=== PATIENT | female | born 1970 | race Caucasian/White ===

== ENCOUNTER → 2023-10-05 14:08 | Outpatient (REF) | payer OTHER, SELFPAY | LOC: HWRAD 14:08 | PROVIDERS: ATTENDING PHYSICIAN Student in an Organized Health Care Education/Training Program; FAMILY PHYSICIAN Internal Medicine | DX: S72.142D Displaced intertrochanteric fracture of left femur, subsequent encounter for closed fracture with routine healing (principal) | CPT/HCPCS: 73700 ==

== ENCOUNTER 2023-11-09 03:41 | Emergency (ER) | payer OTHER, SELFPAY ==
[2023-11-09 03:45] VITALS: BP 164/98
[2023-11-09 06:34] VITALS: BMI 13.3
--- NOTE | 2023-11-09 06:38 | ED.GENMED ---
History of Present Illness
General
Chief Complaint: Abdominal Pain
Time Seen by Provider: 11/09/23 06:37
Travel History
Have you had any contact with someone who has COVID-19?: No
Do you have any symptoms of coronavirus? Fever > 100 degrees, chills, cough, shortness of breath, sore throat, loss of taste or smell, muscle aches, or headache?: No
History of Present Illness
History of Present Illness:
HPI: Patient presents with upper abdominal pain that radiates to the back and chest. This is associated with nausea and poor appetite. She no longer has significant diarrhea like she has in the past. She states she does not drink alcohol is much
as she used to. She states she still has her gallbladder.
EXAM:
GENERAL: Is somewhat cachectic
HEENT: Moist oral mucosa
CARDIOVASCULAR: No murmurs, normal heart rate, regular rhythm, No chest wall tenderness
PULMONARY: No respiratory distress, breath sounds are clear and equal
ABDOMEN: Soft with no peritoneal signs, mild upper tenderness
NEUROLOGIC: Good strength all extremities, no coordination deficits
PSYCHIATRIC: Appropriate mental status, normal insight and judgement
EXTREMITIES: Nontender, no edema, moves all extremities equally
SKIN: No rash, no lesions
TIME OF INITIAL ENCOUNTER: 6:40 AM
NUMBER AND COMPLEXITY OF PROBLEMS ADDRESSED AT THE ENCOUNTER
� Chronic conditions affecting care: Cirrhosis, hypothyroidism, alcohol abuse, anxiety/depression, chronic pancreatitis
� Acute Exacerbation and/or Progression of Chronic Illness: This is an acute problem
� Differential Diagnosis includes: Cholecystitis, biliary colic, ACS less likely
AMOUNT AND/OR COMPLEXITY OF DATA TO BE REVIEWED AND ANALYZED
� I performed an independent evaluation of and my interpretation is:
EKG: Sinus 71, normal axis, QTc 495 ms, prominent precordial T waves which is new in comparison to 01/31/2023t that time there was more nonspecific ST abnormality
CT:
X-rays:
Laboratory Studies: Count 9.8, hemoglobin 12.0, chemistries relatively unremarkable with exception of AST of 83 and alk phos of 285, troponin negative
Other: Ultrasound imaging shows no evidence of ascites or gallstones
� Review of other/old records: Echo from last year showed an EF of 60 to 65%. The patient was admitted here last year with a left hip fracture and severe hypokalemia. She was also given a unit of blood at that time.
� Clinical information was obtained by an independent historian: I spoke to the fianc� at bedside
� Prescriptions/Medications Considered but not given:
� Further testing considered but not performed:
RISK OF COMPLICATIONS AND/OR MORBIDITY OR MORTALITY OF PATIENT MANAGEMENT
� Social determinants of health affecting care: Lives at home
� Discussion with other providers:
� Escalation of care including admission/observation vs risk of discharge considered: The patient primarily complains of upper abdominal pain that radiates to the back�will obtain ultrasound imaging. She does not have diarrhea
like she had in the past. She states she has decreased her alcohol intake. Ultrasound imaging obtained which shows no gallbladder abnormality. EKG is somewhat abnormal however the troponin is negative. Potassium is normal. Alk phos is similar
to prior. Troponin negative.
Past History
Past History
ED Past Medical History: Psychiatric (Depression) and Other (Eating disorder, ascites, vitamin D deficiency, alcohol related liver disease)
ED Past Surgical History: Orthopedic
Social History
Tobacco: Smoker
Alcohol: Occasional
Drug: None
Personal: Partner
Employment: Employed
Family History
Family History: Negative CAD
Phy Exam
Physical Exam
Physical Exam:
See HPI
Course
Orders/Labs/Results
Orders:
Orders
11/09/23 03:50
EKG [Electrocardiogram (*1)] Urgent
Reason for Study: Abdominal Pain
11/09/23 03:51
EKG- Treatment ONCE
11/09/23 06:33
Complete Blood Count/With Diff Urgent
Comprehensive Metabolic Panel Routine
Comment: REDRA
Troponin I Routine
11/09/23 06:41
Magnesium Urgent
11/09/23 06:46
0.9% Sodium Chloride 1000 ml [Nss] 1,000 ml IV BOLUS
Famotidine [Pepcid] 20 mg IV NOW STA
US Abdomen Complete/Upper Urgent
Comment:
Reason For Exam: upper abd pain
Abnormal Lab Results
11/09/23
06:33
RBC 3.56 L 10^6/uL
(4.20-5.40)
Hct 35.0 L %
(37.0-47.0)
MCH 33.7 H pg
(27.0-31.0)
RDW 17.3 H %
(11.5-14.5)
Abs Immat Gran (auto) 0.1 H 10^3/uL
(0-0.05)
Absolute Neuts (auto) 7.7 H 10^3/uL
(1.4-6.5)
Absolute Lymphs (auto) 0.9 L 10^3/uL
(1.2-3.4)
Absolute Monos (auto) 1.1 H 10^3/uL
(0.1-0.6)
Immature Gran % 0.6 H %
(0-0.5)
Neutrophils % 78.2 H %
(42.2-75.2)
Lymphocytes % 9.4 L %
(20.5-51.1)
Monocytes % 11.0 H %
(1.7-9.3)
Creatinine 0.4 L mg/dL
(0.6-1.0)
Glucose 109 H mg/dl
(70-99)
Calcium 10.3 H mg/dl
(8.4-10.2)
AST 83 H U/L
(14-36)
ALT 38 H U/L
(0-35)
Alkaline Phosphatase 285 H U/L
(38-126)
11/09/23 06:33
11/09/23 06:33
Vital Signs
Initial and Last Documented VS:
Initial Vital Signs
Temp Pulse Resp BP Pulse Ox
98.0 F 75 20 164/98 100
11/09/23 03:45 11/09/23 03:45 11/09/23 03:45 11/09/23 03:45 11/09/23 03:45
Last Documented Vital Signs
Temp Pulse Resp BP Pulse Ox
98.0 F 78 23 163/107 100
11/09/23 03:45 11/09/23 09:00 11/09/23 09:00 11/09/23 09:00 11/09/23 09:00
*Critical Care Note
Total Time (30-74mins, 75-104mins- exclusive of procedures): Not Applicable
ED Attending Note
-
Portions of this chart may have been created with voice recognition software.� Occasional wrong word or��sound alike� substitutions may have occurred due to the inherent limitations of voice recognition software.
Discharge Plan
Departure
Patient Disposition: Home (Routine Discharge)
Date of Disposition: 11/09/23
Time of Disposition: 09:03
Patient with high blood pressure during this ER visit?: Yes
Discharge Problem:
Abdominal pain
Instructions: Acid Reflux and GERD in Adults (DC), Abdominal Pain
Prescriptions:
No Action
escitalopram oxalate 20 mg tablet
20 mg PO DAILY
polyethylene glycol 3350 [HealthyLax] 17 gram Powder In Packet
17 g PO DAILY Qty: 0 0RF
magnesium oxide 500 mg Tablet
500 mg PO BID Qty: 60 0RF
oxycodone 5 mg Tablet
5 mg PO Q4HPRN PRN (Reason: mild pain) Qty: 30 0RF
acetaminophen 500 mg capsule
1,000 mg PO BID Qty: 60 0RF
aspirin 325 mg Tablet
325 mg PO DAILY 24 Days Qty: 0 0RF
Phospha 250 Neutral 250 mg tablet
2 tab PO BID Qty: 120 0RF
oxycodone 5 mg capsule
5 mg PO Q6H PRN (Reason: moderate pain) Qty: 5 0RF
senna 8.6 mg capsule
8.6 mg PO HS Qty: 30 0RF
Referrals:
NONE,* [Family Provider] -
Activity Restrictions/Additional Instructions:
You can also take Pepcid in addition to the meds you are already taking. Basic blood work is relatively unchanged from prior. Potassium level is normal, white count is, and liver numbers are unchanged. Ultrasound showed no sign of ascites or
gallbladder stones or gallbladder infection. Follow-up with your primary care doctor and/or GI doctor.
Interventions
Interventions:
*Risk Screen - Suicide Last Done: 11/09/23 03:45
*General Assessment Last Done: 11/09/23 03:45
*Neglect/Abuse Screening Last Done: 11/09/23 03:45
ED- Fall Risk Assessment Last Done: 11/09/23 03:45
*ED COVID-19 Vaccine History Last Done: 11/09/23 03:45
MA-Zsdvrd-Byjfhhnqlw Assessment Last Done: 11/09/23 06:35
Discharge Date and Time
Print Language: THAI
[2023-11-09 06:42] LABS: % Basophils 0.6 % (0-2); % Eosinophils 0.2 % (0-6); % Immature Granulocytes 0.6 % (0-0.5); % Lymphocytes 9.4 % (20.5-51.1); % Neutrophils 78.2 % (42.2-75.2); Absolute Basophils 0.1 10^3/uL (0-0.2); Absolute Immature Granulocytes 0.1 10^3/uL (0-0.05); Absolute Lymphocytes 0.9 10^3/uL (1.2-3.4); Absolute Monocytes 1.1 10^3/uL (0.1-0.6); Absolute Neutrophils 7.7 10^3/uL (1.4-6.5); Mean Corp Hgb Conc. 34.3 g/dL (33.0-37.0); Mean Corpuscular Hgb 33.7 pg (27.0-31.0); Mean Corpuscular Volume 98.3 fL (81.0-99.0); Mean Platelet Volume 8.8 fL (7.4-10.4); Nucleated Red Blood Cells % 0 %; Platelet Count 222 10^3/uL (130-400); Red Blood Cell Count 3.56 10^6/uL (4.20-5.40); Red Cell Dist. Width 17.3 % (11.5-14.5); White Blood Cell Count 9.8 10^3/uL (4.8-10.8)
[2023-11-09 07:09] LABS: Troponin I < 0.012 ng/ml
[2023-11-09 07:11] LABS: ALT (SGPT) 38 U/L (0-35); AST (SGOT) 83 U/L (14-36); Albumin 4.3 g/dl (3.5-5.0); Alkaline Phosphatase 285 U/L (38-126); Blood Urea Nitrogen 7 mg/dl (7-17); Calcium 10.3 mg/dl (8.4-10.2); Carbon Dioxide 24 mmol/L (22-30); Chloride 104 mmol/L (98-107); Estimated Creatinine Clearance 65 ml/min; Glucose 109 mg/dl (70-99); Potassium 4.2 mmol/L (3.5-5.1); Sodium 137 mmol/L (135-145); Total Bilirubin 0.8 mg/dl (0.2-1.3); Total Protein 7.8 g/dl (6.3-8.2); eGFR > 60.00
[2023-11-09] MEDS: PEPCID 20 MG IV (08:15)
[2023-11-09] MEDS: NSS 1000 IV (08:18)
[2023-11-09 08:24] VITALS: BP 181/113
[2023-11-09 08:27] VITALS: BP 167/114
[2023-11-09 09:00] VITALS: BP 163/107
[2023-11-09 09:20] VITALS: BP 165/120
[2023-11-09 09:21] VITALS: BP 151/104
== END 2023-11-09 09:59 | disposition home or self-care (01) ==
LOC: EMR 03:41
PROVIDERS: Student in an Organized Health Care Education/Training Program; EMERGENCY PHYSICIAN Emergency Medicine
DX: R10.10 Upper abdominal pain, unspecified (principal); R11.0 Nausea; M54.9 Dorsalgia, unspecified; R03.0 Elevated blood-pressure reading, without diagnosis of hypertension; F32.A Depression, unspecified; E55.9 Vitamin D deficiency, unspecified; R63.0 Anorexia; K74.60 Unspecified cirrhosis of liver; E03.9 Hypothyroidism, unspecified; F41.9 Anxiety disorder, unspecified; K86.1 Other chronic pancreatitis; F10.11 Alcohol abuse, in remission; F50.9 Eating disorder, unspecified; F17.200 Nicotine dependence, unspecified, uncomplicated
CPT/HCPCS: 99284; 96374; 96361; 76700; 80053; 84484; 85025; 93005

== ENCOUNTER 2024-11-23 08:03 | Emergency (ER) | payer OTHER, SELFPAY ==
[2024-11-23 08:05] VITALS: BP 165/98
--- NOTE | 2024-11-23 08:17 | ED.GENMED ---
History of Present Illness
<Nori Soto PA-C - Last Filed: 11/23/24 10:15>
General
Chief Complaint: Musculo-Skeletal Complaint
Source: patient
Exam Limitations: none
Time Seen by Provider: 11/23/24 08:14
Nursing documentation reviewed up to this point in time: agreed with
History of Present Illness
History of Present Illness:
Patient is a 54-year-old female who presents to the emergency department for evaluation of right arm injury after trip and fall last night around 6:30 PM. The patient tripped over a brick while getting out of a car and fell forward landing with an
outstretched arm. She presents with significant right wrist pain and swelling along with limited range of motion of right wrist secondary to pain. She reports some mild tingling in her right hand although denies any numbness. No other injury
sustained.
She does not believe she struck her head. She denies any headache, neck pain, back pain, numbness/tingling in lower extremities or weakness. She denies any changes in her vision. Patient states she has been ambulatory without difficulty and
denies any pain in lower extremities. She denies any chest pain, shortness of breath, or abdominal pain.
Patient is not on any blood thinners.
She does have a history of a left hip fracture a few years ago which was surgically corrected by Dr. Montgomery.
Past History
<Nori Soto PA-C - Last Filed: 11/23/24 10:15>
Past History
ED Past Medical History: Psychiatric (Depression) and Other (Eating disorder, ascites, vitamin D deficiency, alcohol related liver disease)
ED Past Surgical History: Orthopedic
Social History
Tobacco: Smoker
Alcohol: Occasional
Drug: None
Personal: Partner
Employment: Employed
Family History
Family History: Negative CAD
Review of Systems
<Nori Soto PA-C - Last Filed: 11/23/24 10:15>
Review of Systems
Allergies reviewed?: Yes
All Other Systems: ROS reviewed and negative except as documented in HPI and ROS
Phy Exam
<Nori Soto PA-C - Last Filed: 11/23/24 10:15>
Physical Exam
Physical Exam:
Vitals: Hypertensive, otherwise vital signs stable. Afebrile
General: Patient is well appearing, no acute distress
Skin: Warm and dry, no rashes or lesions
Head: Normocephalic, atraumatic
Eyes: Sclera nonicteric. EOMs intact. No nystagmus.
Throat: Protecting airway
Neck: Normal ROM, no cervical spine tenderness, no meningismus
Cardiac: Regular rate and rhythm, no murmurs. No anterior/posterior chest wall tenderness.
Pulm: Normal respiratory effort, no wheezes, rales, rhonchi heard on exam
Abdomen: No abdominal tenderness.
Back: No midline spinal tenderness
Extremities: Significant edema and tenderness of right wrist. Very limited range of motion in right wrist secondary to pain. No tenderness of right elbow with full range of motion. 2+ palpable right radial pulse, normal capillary refill.
Neuro: AAOx3. Grossly intact
Psychiatric: Normal affect.
Course
<Nori Soto PA-C - Last Filed: 11/23/24 10:15>
Orders/Labs/Results
Orders:
Orders
11/23/24 08:08
Forearm, Right 2 View [CR Forearm - Right 2 View] Urgent
Comment:
Reason For Exam: injury
Wrist, Right 3 Views [CR Wrist - Right Min 3 Views] Urgent
Comment:
Reason For Exam: injury
11/23/24 08:36
Acetaminophen [Tylenol] 650 mg PO NOW STA
11/23/24 08:53
CR Wrist - Right Min 2 Views Urgent
Comment:
Reason For Exam: post reduction
11/23/24 08:54
Oxycodone [Roxicodone] 5 mg PO NOW STA
Vital Signs
Initial and Last Documented VS:
Initial Vital Signs
Temp Pulse Resp BP Pulse Ox
98.2 F 97 16 165/98 100
11/23/24 08:05 11/23/24 08:05 11/23/24 08:05 11/23/24 08:05 11/23/24 08:05
Last Documented Vital Signs
Temp Pulse Resp BP Pulse Ox
98.2 F 86 16 142/85 100
11/23/24 08:05 11/23/24 09:15 11/23/24 09:15 11/23/24 09:15 11/23/24 08:18
<Maury Klein, DO - Last Filed: 11/23/24 09:02>
Orders/Labs/Results
Orders:
Orders
11/23/24 08:08
Forearm, Right 2 View [CR Forearm - Right 2 View] Urgent
Comment:
Reason For Exam: injury
Wrist, Right 3 Views [CR Wrist - Right Min 3 Views] Urgent
Comment:
Reason For Exam: injury
11/23/24 08:36
Acetaminophen [Tylenol] 650 mg PO NOW STA
11/23/24 08:53
CR Wrist - Right Min 2 Views Urgent
Comment:
Reason For Exam: post reduction
11/23/24 08:54
Oxycodone [Roxicodone] 5 mg PO NOW STA
Vital Signs
Initial and Last Documented VS:
Initial Vital Signs
Temp Pulse Resp BP Pulse Ox
98.2 F 97 16 165/98 100
11/23/24 08:05 11/23/24 08:05 11/23/24 08:05 11/23/24 08:05 11/23/24 08:05
Last Documented Vital Signs
Temp Pulse Resp BP Pulse Ox
98.2 F 86 16 142/85 100
11/23/24 08:05 11/23/24 09:15 11/23/24 09:15 11/23/24 09:15 11/23/24 08:18
Procedures
<Nori Soto PA-C - Last Filed: 11/23/24 10:15>
Splinting/Sling Placement
Right Wrist:
Procedure completed by: Nori Soto PA-C, Maury Klein DO
Pre-splint extermity exam: neurovascular intact
Type of splint: sugar-tong
Splint material: fiberglass
Splint checked by provider?: Yes
Type of sling: sling fitted
Normal distal neurovascular exam?: Yes
Joint/Fracture Reduction
Right Wrist:
Indication for procedure:: Right distal radius/ ulna fracture
Procedure completed by: Nori Soto Pa-C, Maury Klein DO
Consent form signed: Yes
Joint reduced: without anesthesia
Anesthesia/sedation: 1% Lidocaine and Regional block (Hematoma block)
Injury was: closed
Further treatement: needs further treatment
Post reduction exam: stable
Capillary Refill: normal
Normal distal neurovascular exam?: Yes
Peripheral Pulses: radial (right): 2+
<Nori Soto PA-C - Last Filed: 11/23/24 10:15>
MDM/Problems Addressed
Differential Diagnosis Includes:
Not limited to: Distal radius fracture, proximal ulnar fracture, wrist sprain, etc.
MDM/Problems Addressed:
54-year-old female presenting with right wrist pain and swelling after a mechanical fall yesterday. No associated head trauma or other injuries noted. Patient is hypertensive with otherwise stable vital signs. Physical exam as above. There is
swelling, tenderness, and limited range of motion in the right wrist on arrival to emergency department. There is no evidence of head or neck trauma or other traumatic injuries identified on exam.
X-ray reveals right distal radius/ulnar fracture with volar angulation. Plan to attempt closed reduction in the emergency department. Written consent obtained.
Hematoma block administered followed by closed reduction of right wrist with attending physician. See procedure notes for detail. Patient tolerated procedure well. Patient placed in sugar-tong splint and given a shoulder sling. Postreduction
x-ray shows reduced volar angulation of fracture. Discussed with orthopedics on-call, Dr. Montgomery who will see patient later today in office for follow-up. Advised ice, elevation, Tylenol for pain. Will send a few tablets of Percocet for severe
pain control as needed. Strict return precautions discussed. Patient stable for discharge home.
Chronic conditions affecting care:
N/A
Acute Exacerbation and/or Progression of Chronic Illness:
N/A
<Nori Soto PA-C - Last Filed: 11/23/24 10:15>
*Pulse Oximetry
SaO2: 100
Oxygen Mode of Delivery: Room air
Patient hypoxic: no
*EKG
Interpreted by ED Provider?: NA
*Creative Coordinator Interpretation
Rate: Creative Coordinator- N/A
*Critical Care Note
Total Time (30-74mins, 75-104mins- exclusive of procedures): Not Applicable
<Nori Soto PA-C - Last Filed: 11/23/24 10:15>
Patient Management
Discussion with other providers: Gunnery/Ordnance Officer (Case discussed with orthopedics)
<Nori Soto PA-C - Last Filed: 11/23/24 10:15>
Update Note
Update Note:
Update: Following patient's discharge�I was contacted by Dr. Ford stating that patient's insurance will not be covered for outpatient surgical management with her office. I did contact patient and recommended that she call her insurance
company to obtain information for orthopedic surgeons in network. She expressed verbal understanding. Offered x-ray disc of images if needed and return to emergency department any concerns.
ED Attending Note
<Nori Soto PA-C - Last Filed: 11/23/24 10:15>
-
Portions of this chart may have been created with voice recognition software.� Occasional wrong word or��sound alike� substitutions may have occurred due to the inherent limitations of voice recognition software.
<Maury Klein DO - Last Filed: 11/23/24 09:02>
ED Attending Note
Patient seen and examined by attending physician: Yes
I performed the substantive portion of visit, reviewed & personally made and approve the management plan that is documented in note by myself or RUEL.: Yes
ED Attending Note:
I evaluated the patient at bedside and participated with attempted reduction after hematoma block
Discharge Plan
Departure
Patient Disposition: Home (Routine Discharge)
Date of Disposition: 11/23/24
Time of Disposition: 09:23
Patient with high blood pressure during this ER visit?: Yes
Condition: Good
Covid-19: Not Applicable
Discharge Problem:
Closed fracture of right distal radius and ulna
Instructions: How to Use a Shoulder Sling, Splint Care, BLOOD PRESSURE, Wrist Fracture
Prescriptions:
New
oxycodone-acetaminophen [Percocet] 5-325 mg tablet
1 tab PO Q6H PRN (Reason: Pain) Qty: 7 0RF
No Action
escitalopram oxalate 20 mg tablet
20 mg PO DAILY
polyethylene glycol 3350 [HealthyLax] 17 gram Powder In Packet
17 g PO DAILY Qty: 0 0RF
magnesium oxide 500 mg Tablet
500 mg PO BID Qty: 60 0RF
oxycodone 5 mg Tablet
5 mg PO Q4HPRN PRN (Reason: mild pain) Qty: 30 0RF
acetaminophen 500 mg capsule
1,000 mg PO BID Qty: 60 0RF
aspirin 325 mg Tablet
325 mg PO DAILY 24 Days Qty: 0 0RF
Phospha 250 Neutral 250 mg tablet
2 tab PO BID Qty: 120 0RF
oxycodone 5 mg capsule
5 mg PO Q6H PRN (Reason: moderate pain) Qty: 5 0RF
senna 8.6 mg capsule
8.6 mg PO HS Qty: 30 0RF
Referrals:
Bruna Montgomery DO [Active, Orthopedics] - Keep scheduled appt
Referral Note: Today at 1PM [place]
Javier Quevedo DO [Family Provider, Internal Medicine]
Activity Restrictions/Additional Instructions:
RETURN TO THE EMERGENCY DEPARTMENT WITH ANY INTRACTABLE PAIN, NUMBNESS/TINGLING IN RIGHT WRIST, WORSENING OF CURRENT SYMPTOMS, OR ANY OTHER CONCERNS
- As discussed�your x-ray showed a fracture of your right distal radius and ulna.
- A fracture reduction was attempted in the emergency department along with a hematoma block. You were given Tylenol/oxycodone.
- It is important you keep your right wrist in splint and wear sling. Apply ice/elevate your right wrist frequently for the next few days. A prescription for Percocet has been sent to your pharmacy that you can take as needed for severe pain.
This may cause drowsiness and should not be taken prior to driving
- Follow-up with orthopedics, Dr. Montgmoery at 1 PM today at her [place] office for further evaluation/management. This may require further treatment.
Monitor your symptoms closely and return to the emergency department with any acute worsening/new symptoms or any other concerns
Interventions
Interventions:
*Risk Screen - Suicide Last Done: 11/23/24 08:05
*General Assessment Last Done: 11/23/24 08:33
*Neglect/Abuse Screening Last Done: 11/23/24 08:05
*ED- Fall Risk Assessment Last Done: 11/23/24 08:32
*ED COVID-19 Vaccine History Last Done: 11/23/24 08:33
*Nursing Disposition Last Done: 11/23/24 09:53
ED-Musculoskeletal Assessment Last Done: 11/23/24 08:31
Discharge Date and Time
Discharge Date/Time: 11/23/24 09:55
Print Language: TAJIK
[2024-11-23] MEDS: TYLENOL 650 MG PO (08:49)
[2024-11-23] MEDS: ROXICODONE 5 MG PO (09:05)
[2024-11-23 09:15] VITALS: BP 142/85
== END 2024-11-23 09:55 | disposition home or self-care (01) ==
LOC: EMR 08:03
PROVIDERS: EMERGENCY PHYSICIAN Emergency Medicine; FAMILY PHYSICIAN Internal Medicine
DX: S52.591A Other fractures of lower end of right radius, initial encounter for closed fracture (principal); S52.601A Unspecified fracture of lower end of right ulna, initial encounter for closed fracture; W01.0XXA Fall on same level from slipping, tripping and stumbling without subsequent striking against object, initial encounter; I10 Essential (primary) hypertension; F17.200 Nicotine dependence, unspecified, uncomplicated
CPT/HCPCS: 99283; 25565; 73090; 73100; 73110